=== PATIENT | male | born 1960 | race Caucasian/White ===

== ENCOUNTER 2020-03-26 16:10 | Outpatient (RCR) | payer SELFPAY | END 2020-04-01 | LOC: PT 16:10 | PROVIDERS: ATTEND Specialist | DX: M99.03 Segmental and somatic dysfunction of lumbar region (principal); M54.16 Radiculopathy, lumbar region; M54.5 Low back pain; M62.81 Muscle weakness (generalized) ==

== ENCOUNTER 2020-04-27 11:00 | Outpatient (RCR) | payer SELFPAY | END 2020-04-29 | LOC: PT 11:00 | PROVIDERS: ATTEND Specialist | DX: M99.03 Segmental and somatic dysfunction of lumbar region (principal); M54.16 Radiculopathy, lumbar region; M54.5 Low back pain; M62.81 Muscle weakness (generalized) ==